=== PATIENT | female | born 1945 | race Hispanic/Latino ===

== ENCOUNTER → 2019-06-11 | Outpatient (CLI) | payer OTHER ==
--- NOTE | 2019-06-14 11:55 | US ---
EXAM DESCRIPTION: Breast,Left: Ultrasound. CLINICAL HISTORY: 73 yearsFemaleMASTODYNIA. No mammogram in past 5 years. No personal or family history of breast cancer. COMPARISON: None. TECHNIQUE: Transcutaneous scanning of the left breast utilizing evangelista-scale and Doppler modes. Scanning performed by the fur clipper only. FINDINGS: Scanning of the upper-outer quadrant of the left breast with emphasis at the 2:00 position, 8 cm from the nipple, at the region of pain. Mostly fatty replacement. Scattered fibroglandular tissues. No dominant solid mass. No distinct cyst. No large calcifications. No parenchymal edema. No overlying skin changes. IMPRESSION: BI-RADS CATEGORY: 0 - INCOMPLETE- Need follow-up bilateral digital diagnostic mammograms for comparison. FOLLOW-UP: Comparison with bilateral digital diagnostic mammographic examination(s) when performed. Written communication explaining the results and follow-up will be mailed to the patient and referring care provider. Electronically signed by: Shelton Kebede MD 06/14/2019 11:54 AM CYTOGENETICIST
== END ==
LOC: US 13:42
PROVIDERS: ATTEND Nurse Practitioner Family
DX: N64.4 Mastodynia (principal)